=== PATIENT | male | born 1990 | race Two or more races ===

== ENCOUNTER 2016-06-14 15:23 | Emergency (ER) | payer OTHER ==
[2016-06-14] MEDS ORDERED: Bupivacaine 0.25% 10 ML SDV INJECT ONE (15:45)
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
--- NOTE | 2016-06-14 16:08 | CR ---
EXAMINATION: Right hand HISTORY: Injury COMPARISON: None TECHNIQUE: 3 views FINDINGS: There is no acute osseous abnormality, dislocation, or fracture. Bone mineralization and j oint spaces appear normal. The radiocarpal alignment is preserved. IMPRESSION: No acute osseous abnormality identified.
[2016-06-14] MEDS ORDERED: Acetaminophen/oxyCODONE 325-10 MG Tab PO ONE (17:17)
[2016-06-14 17:53] VITALS: BP 140/80
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
== END 2016-06-14 17:45 ==
LOC: MW.ED 15:23
DX: S63.210A Subluxation of metacarpophalangeal joint of right index finger, initial encounter (principal); F17.210 Nicotine dependence, cigarettes, uncomplicated; X58.XXXA Exposure to other specified factors, initial encounter
CPT/HCPCS: 73130; 99285; A9270; 99283